=== PATIENT | female | born 1955 | race Caucasian/White ===

== ENCOUNTER 2017-05-31 08:17 | Emergency (ER) | payer BC, OTHER ==
[~2017-05-31] VITALS: Ht 162.6 cm; Wt 61.2 kg
[2017-05-31] MEDS ORDERED: CELEXA40 MG PO (09:37)
[2017-05-31] MEDS ORDERED: DUAVEE 0.45-201 EACH PO (09:37)
[2017-05-31] MEDS ORDERED: PROPRANOLOL 1010 MG PO (09:37)
== END 2017-05-31 11:00 | disposition home or self-care (01) ==
LOC: ER 08:17
DX: S01.511A Laceration without foreign body of lip, initial encounter (principal); S01.81XA Laceration without foreign body of other part of head, initial encounter; S01.21XA Laceration without foreign body of nose, initial encounter; Z88.5 Allergy status to narcotic agent; W10.9XXA Fall (on) (from) unspecified stairs and steps, initial encounter; Y93.89 Activity, other specified; Y92.89 Other specified places as the place of occurrence of the external cause; Y99.8 Other external cause status